=== PATIENT | female | born 1985 | race Caucasian/White ===

== ENCOUNTER 2019-05-22 07:01 | Day surgery (SDC) | payer OTHER ==
--- NOTE | 2019-05-21 09:53 | PCM.PREANE ---
<Paula Song - Last Filed: 05/21/19 09:50> Preanesthetic Assessment - Anesthesia/Transfusion/Family Hx Anesthesia History: Prior Anesthesia Without Reaction Family History of Anesthesia Reaction: No Transfusion History: Prior Transfusion Without Reaction Intubation History: Unknown - Review of Systems Neurological: Headache (Migraines) - Physical Assessment NPO Status Date: 05/21/19 Vital Signs: Last Vital Signs Temp 36.7 C 05/22/19 07:15 Pulse 65 05/22/19 07:15 Resp 16 05/22/19 07:15 BP 121/75 05/22/19 07:15 Pulse Ox 97 05/22/19 07:15 HR: BP: Resp: Sat: Temp: Height: 1.68 m ASA Class: 1 Mental Status: Alert & Oriented x3 - Lab Values: Laboratory Last Values WBC 5.62 K/mm3 (3.98-10.04) 05/17/19 12:59 RBC 4.84 M/mm3 (3.98-5.22) 05/17/19 12:59 Hgb 14.7 gm/dl (11.2-15.7) 05/17/19 12:59 Hct 42.7 % (34.1-44.9) 05/17/19 12:59 MCV 88.2 fl (79.4-94.8) 05/17/19 12:59 MCH 30.4 pg (25.6-32.2) 05/17/19 12:59 MCHC 34.4 g/dl (32.2-35.5) 05/17/19 12:59 RDW Std Deviation 41.2 fL (36.4-46.3) 05/17/19 12:59 Plt Count 232 K/mm3 (182-369) 05/17/19 12:59 MPV 9.0 fl (9.4-12.3) L 05/17/19 12:59 Neut % (Auto) 65.6 % (34.0-71.1) 05/17/19 12:59 Lymph % (Auto) 27.4 % (19.3-51.7) 05/17/19 12:59 Harris % (Auto) 6.4 % (4.7-12.5) 05/17/19 12:59 Eos % (Auto) 0.2 (0.7-5.8) L 05/17/19 12:59 Baso % (Auto) 0.4 % (0.1-1.2) 05/17/19 12:59 Neut # (Auto) 3.69 K/mm3 (1.56-6.13) 05/17/19 12:59 Lymph # (Auto) 1.54 K/mm3 (1.18-3.74) 05/17/19 12:59 Harris # (Auto) 0.36 K/mm3 (0.24-0.36) 05/17/19 12:59 Eos # (Auto) 0.01 K/mm3 (0.04-0.36) L 05/17/19 12:59 Baso # (Auto) 0.02 K/mm3 (0.01-0.08) 05/17/19 12:59 Creatinine 0.7 mg/dL (0.55-1.02) 05/17/19 12:59 Est Cr Clr Drug Dosing TNP 05/17/19 12:59 Estimated GFR (MDRD) > 60 mL/min (>60) 05/17/19 12:59 Urine Color Yellow (Yellow) 05/17/19 12:59 Urine Appearance Turbid (Clear) H 05/17/19 12:59 Urine pH 5.5 (5.0-8.0) 05/17/19 12:59 Ur Specific Flynn > or = 1.030 (1.005-1.030) 05/17/19 12:59 Urine Protein Negative (Negative) 05/17/19 12:59 Urine Glucose (UA) Negative (Negative) 05/17/19 12:59 Urine Ketones 1+ (Negative) H 05/17/19 12:59 Urine Occult Blood Negative (Negative) 05/17/19 12:59 Urine Nitrite Negative (Negative) 05/17/19 12:59 Urine Bilirubin Negative (Negative) 05/17/19 12:59 Urine Urobilinogen 0.2 (0.2-1.0) 05/17/19 12:59 Ur Leukocyte Esterase Negative (Negative) 05/17/19 12:59 Urine HCG, Qual Negative (NEGATIVE) 05/22/19 07:14 Above labs reviewed and noted and within acceptable ranges to proceed with scheduled procedure. 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: , Spontaneous Endocrine/Metabolic History: Reports: Other (See Below) Other Endocrine/Metabolic History: abnormal TSH levels during - Past Surgical History HEENT Surgical History: Reports: Oral Surgery Musculoskeletal Surgical History: Reports: Other (See Below) - HOME MEDS Home Medications: Home Meds RX: Multivitamin [Daily Shaun] 1 tab PO DAILY 05/21/19 [History] - CURRENT (IN HOUSE) MEDS Current Meds: Current Medications Lactated Ringer's (Ringers, Lactated) 1,000 mls @ 125 mls/hr IV ASDIRECTED MARLENE Stop: 05/22/19 23:00 Last Admin: 05/22/19 07:40 Dose: 125 mls/hr Lidocaine/Sodium Bicarbonate (Buffered Lidocaine 1% In Ns 8.4%) 0.25 ml IDERM ONETIME PRN PRN Reason: Prior to IV Start Stop: 05/22/19 23:00 Last Admin: 05/22/19 07:40 Dose: 0.25 ml Miscellaneous Information (Remove Patch) 1 ea TRDERM Q72H MARLENE Scopolamine (Transderm-Scop) 1.5 mg TRDERM ONETIME MARLENE Last Admin: 05/22/19 07:50 Dose: 1.5 mg Sodium Chloride (Saline Flush) 10 ml FLUSH ASDIRECTED PRN PRN Reason: Keep Vein Open Stop: 05/22/19 23:00 Discontinued Medications Cefazolin Sodium (Ancef) Confirm Administered Dose 2 gm .ROUTE .STK-MED ONE Stop: 05/22/19 07:19 Dexamethasone (Dexamethasone) Confirm Administered Dose 20 mg .ROUTE .STK-MED ONE Stop: 05/22/19 07:21 Fentanyl (Sublimaze) Confirm Administered Dose 250 mcg .ROUTE .STK-MED ONE Stop: 05/22/19 07:20 Lidocaine HCl (Xylocaine-Mpf 1%) Confirm Administered Dose 4 mls @ as directed .ROUTE .STK-MED ONE Stop: 05/22/19 07:19 Lactated Ringer's (Ringers, Lactated) Confirm Administered Dose 1,000 mls @ as directed .ROUTE .STK-MED ONE Stop: 05/22/19 07:19 Ketorolac Tromethamine (Toradol) Confirm Administered Dose 15 mg .ROUTE .STK- MED ONE Stop: 05/22/19 07:21 Lidocaine/Epinephrine (Xylocaine 1% With Epinephrine 1:100,000) Confirm Administered Dose 20 ml .ROUTE .STK-MED ONE Stop: 05/22/19 07:25 Midazolam HCl (Versed 1 Mg/Ml) Confirm Administered Dose 2 mg .ROUTE .STK-MED ONE Stop: 05/22/19 07:19 Ondansetron HCl (Zofran) Confirm Administered Dose 4 mg .ROUTE .STK-MED ONE Stop: 05/22/19 07:19 Propofol (Diprivan 20 Ml) Confirm Administered Dose 400 mg .ROUTE .STK-MED ONE Stop: 05/22/19 07:19 Rocuronium [place] (Zemuron) Confirm Administered Dose 50 mg .ROUTE .STK-MED ONE Stop: 05/22/19 07:19 Sodium Chloride (Normal Saline) Confirm Administered Dose 50 ml .ROUTE .[facility] [place]-MED ONE Stop: 05/22/19 07:25 <Nissa Paige - Last Filed: 05/22/19 07:54> Preanesthetic Assessment - Anesthesia/Transfusion/Family Hx Anesthesia History: Prior Anesthesia Without Reaction Family History of Anesthesia Reaction: No Transfusion History: Prior Transfusion Without Reaction Intubation History: Unknown - Review of Systems General: No Symptoms Pulmonary: No Symptoms Cardiovascular: No Symptoms Gastrointestinal: No Symptoms Neurological: Headache Other: Reports: None - Physical Assessment NPO Status Time: 22:30 ASA Class: 1 Mental Status: Alert & Oriented x3 Airway Class: Mallampati = 1 Dentition: Reports: Normal Dentition Thyro-Mental Finger Breadths: 3 Mouth Opening Finger Breadths: 3 ROM/Head Extension: Full Lungs: Clear to Auscultation, Normal Respiratory Effort Cardiovascular: Regular Rate, Regular Rhythm - Anesthesia Plan Pre-Op Medication Ordered: Anxiolytic - Acknowledgements Anesthesia Type Planned: General Anesthesia Pt an Appropriate Candidate for the Planned Anesthesia: Yes Alternatives and Risks of Anesthesia Discussed w Pt/Guardian: Yes Pt/Guardian Understands and Agrees with Anesthesia Plan: Yes
[~2019-05-22 07:01] MED LIST: Lactated Ringers 1,000 ML IV SCH; Lidocaine 1%/Sod Bicarbonate in NS 8.4% 1 ML Syringe IDERM PRN; Sodium Chloride 0.9% 10 ML Syringe FLUSH PRN
[2019-05-22] MEDS ORDERED: Midazolam 1 MG/ML 2 ML SDV ONE (07:18)
[2019-05-22] MEDS ORDERED: Rocuronium 50 MG/5 ML Vial ONE (07:18)
[2019-05-22] MEDS ORDERED: Propofol 200 MG/20 ML SDV ONE (07:18)
[2019-05-22] MEDS ORDERED: ceFAZolin 1 GM Vial ONE (07:18)
[2019-05-22] MEDS ORDERED: Lidocaine 1% 4 ML ONE (07:18)
[2019-05-22] MEDS ORDERED: Lactated Ringers 1,000 ML ONE (07:18)
[2019-05-22] MEDS ORDERED: Ondansetron 4 MG/2 ML SDV ONE (07:18)
[2019-05-22] MEDS ORDERED: fentaNYL 250 MCG/5 ML SDV ONE (07:19)
[2019-05-22] MEDS ORDERED: Dexamethasone 4 MG/ML 5 ML MDV ONE (07:20)
[2019-05-22] MEDS ORDERED: Ketorolac 15 MG/ML SDV ONE (07:20)
[2019-05-22] MEDS ORDERED: Lidocaine 1% with EPINEPHrine 1:100,000 20 ML MDV ONE (07:24)
[2019-05-22] MEDS ORDERED: Sodium Chloride 0.9% 50 ML SDV ONE (07:24)
[2019-05-22] MEDS ORDERED: Scopolamine 1.5 MG Transdermal Patch TRDERM SCH (07:45)
[2019-05-22] MEDS ORDERED: Neostigmine Methylsulfate 1 MG/ML 5 ML Syringe ONE (08:23)
[2019-05-22] MEDS ORDERED: ePHEDrine/Normal Saline 25 MG/5 ML Syringe ONE (08:32)
[2019-05-22] MEDS ORDERED: HYDROmorphone 0.5 MG/0.5 ML Syringe IVPUSH PRN (08:37)
[2019-05-22] MEDS ORDERED: fentaNYL 100 MCG/2 ML SDV IVPUSH PRN (08:37)
[2019-05-22] MEDS ORDERED: Ondansetron 4 MG/2 ML SDV IVPUSH PRN (08:37)
--- NOTE | 2019-05-22 09:11 | PCM.POSTAN ---
POST ANESTHESIA ASSESSMENT - MENTAL STATUS Mental Status: Alert, Oriented - VITAL SIGNS Vital Signs: Last Vital Signs 906 118/63 80 10 100% 98.4F - RESPIRATORY Respiratory Status: Respiratory Rate WNL, Airway Patent, O2 Saturation Stable, Supplemental Oxygen - CARDIOVASCULAR CV Status: Pulse Rate WNL, Blood Pressure Stable - GASTROINTESTINAL GI Status: No Symptoms - PAIN Pain Score: 0 - POST OP HYDRATION Hydration Status: Adequate & Stable
[2019-05-22] MEDS ORDERED: Acetaminophen 325 MG Tab PO PRN (09:20)
[2019-05-22] MEDS ORDERED: Acetaminophen/oxyCODONE 325-5 MG Tab PO PRN (09:20)
--- NOTE | 2019-05-22 09:25 | PCM.OPNOTE ---
- General Post-Op/Procedure Note Date of Surgery/Procedure: 05/22/19 Operative Procedure(s): Total vaginal strictly with bilateral salpingectomy Findings: Uterus, tubes and ovaries were essentially within normal limits for gross evaluation Pre Op Diagnosis: 1. Menorrhagia. 2. Dysmenorrhea. 3. Uterine fibroid Post-Op Diagnosis: Same Anesthesia Technique: General ET Tube Other Anesthesia Type: Lidocaine quarter percent with [id number] mL local Primary Surgeon: Kojo Mayers Secondary Surgeon: Juancho Bosch Anesthesia Provider: Nissa Paige Cna Hha: Willa Simons Reason Cna Hha Was Necessary: Assistance, retraction, patient safety, quality of care Fluid Replacement, Intraop: 1,200 EBL in mLs: 25 Complications: None Condition: Good Free Text/Narrative:: Surgery duration: 29 minutes Procedure: The patient was placed in supine position on the operating table. General endotracheal anesthesia was accomplished. After positioning, and adequate prep and drape, the procedure was then performed. Sterile speculum was placed in the vagina and cervix was visualized. Cervix was injected with lidocaine quarter percent with epinephrine-20 mL used. A full circumference incision was made in the cervical epithelium. The bladder was pushed well back off cervix. Posterior cul-de-sac was then entered sharply without problems. Left uterosacral was crossclamped with a Enseal vessel closure system. The left uterosacral and then the right uterosacral ligament pedicles were developed using the Enseal system. The anterior cul-de-sac was then entered without problems and the uterine vasculature, cardinal ligament and broad ligament then developed using Enseal vessel closure system. The uterus was inverted at this time and upper broad ligament fallopian tube pedicles were crossclamped with Manoj clamps. Specimen was totally removed. Both these pedicles were then secured with Enseal vessel closure system. Left and right fallopian tube was normal in appearance.. Using Enseal vessel closure system each of the tubes was then removed and sent with the specimen. The patient was found to be hemostatically intact at this time. Vaginal cuff was sutured for hemostatic reasons with a running locked suture of 0 Monocryl from the 2 o'clock position to the 10 o'clock position posteriorly. Vaginal cuff was then closed from right to left side with a running locked suture of 0 Monocryl. Patient was returned to supine position and awakened from general endotracheal anesthesia. She tolerated the procedure and left the operating room in satisfactory condition.
--- NOTE | 2019-05-22 11:33 | PCM48HPAN ---
Post Anesthesia Note - EVALUATION WITHIN 48HRS OF ANESTHETIC Vital Signs in Normal Range: Yes Patient Participated in Evaluation: Yes Respiratory Function Stable: Yes Airway Patent: Yes Cardiovascular Function Stable: Yes Hydration Status Stable: Yes Pain Control Satisfactory: Yes Nausea and Vomiting Control Satisfactory: Yes Mental Status Recovered: Yes Vital Signs: Last Vital Signs Temp 37.0 C 05/22/19 11:10 Pulse 70 05/22/19 11:10 Resp 16 05/22/19 11:10 BP 120/67 05/22/19 11:10 Pulse Ox 99 05/22/19 11:10
[2019-05-22 12:07] VITALS: BP 121/64; PULSE 67
== END 2019-05-22 12:20 | disposition home or self-care (01) ==
LOC: JD.SDS 07:01
PROVIDERS: ATTEND Obstetrics & Gynecology
DX: N92.0 Excessive and frequent menstruation with regular cycle (principal); Q51.22 Partial doubling of uterus; N72 Inflammatory disease of cervix uteri; N83.8 Other noninflammatory disorders of ovary, fallopian tube and broad ligament; G43.909 Migraine, unspecified, not intractable, without status migrainosus; Z79.899 Other long term (current) drug therapy
CPT/HCPCS: 36415; 58262; 81003; 81025; 82565; 85025; 86850; 86900; 86901; A9270; J0690; J1100; J1885; J2001; J2250; J2405; J2704; J2710; J3010; J7050; J7120; 00944